=== PATIENT | male | born 1955 | race Caucasian/White ===

== ENCOUNTER 2022-03-04 07:58 | Observation (INO) ==
--- NOTE | 2022-02-10 16:16 | PAT Medication Instructions ---
Medication Instructions Date of Service February 10, 2022 Home Medications Medication Instructions Recorded Mandie Huff #1 ea 02/08/22 cetirizine 10 mg capsule (Allergy Relief (cetirizine)) 10 mg PO Q2D PRN seasonal allergies linaclotide 145 mcg capsule (Linzess) 145 mcg PO QAM rosuvastatin 10 mg tablet (Crestor) 10 mg PO QPM DO NOT take the morning of surgery cetirizine 10 mg capsule (Allergy Relief (cetirizine)) 10 mg PO Q2D PRN seasonal allergies linaclotide 145 mcg capsule (Linzess) 145 mcg PO QAM Take evening before surgery cetirizine 10 mg capsule (Allergy Relief (cetirizine)) 10 mg PO Q2D PRN seasonal allergies (if needed) rosuvastatin 10 mg tablet (Crestor) 10 mg PO QPM Other Notes If you have any questions please call us at [phone] or [phone] or [phone] or [phone]
--- NOTE | 2022-02-18 13:50 | Anesthesiology Consultation ---
Date of Service February 18, 2022 Assessment & Plan (1) Encounter for pre-operative examination: - PAT testing to be faxed to PCP including ordered lipid panel and PSA. - pt reports seeing cardiology with Dr. Cony Verduzco in [facility]. Will request most recent office note, any previous cardiac testing for chart completion if available. Chart Review Chart Review: Pending: Refer to Additional Notes / Consult section and Patient seen in Pre Admission Testing Teaching & Discussion Pre-Anesthesia Teaching/Discussion Notes: Instructed NPO after midnight before surgery, except medications with 15 cc of water. Medication instructions provided according to the PAT guidelines. History Surgery Operation Date: 03/04/22 10:40 Proposed Procedures p Right Total Knee Arthroplasty - Brock Dias MD Height/Weight Height: 5 ft 9 in Weight: 84.8 kg Allergies Allergy/AdvReac Type Severity Reaction Status Date / Time No Known Drug Allergies Allergy Verified 02/10/22 13:55 succinylcholine Allergy Severe Uncoded 02/18/22 14:31 Medications Home Medications Medication Instructions Recorded Confirmed Last Taken cetirizine 10 mg capsule (Allergy 10 mg PO Q2D PRN seasonal allergies 10/05/19 02/10/22 10/10/19 Relief (cetirizine)) linaclotide 145 mcg capsule 145 mcg PO QAM 10/05/19 02/10/22 10/10/19 (Linzess) Wheeled Walker #1 ea 02/08/22 02/08/22 Unknown rosuvastatin 10 mg tablet (Crestor) 10 mg PO QPM 02/10/22 02/10/22 Unknown Tums PRN reflux 02/18/22 Unknown Past Medical History Medical History (Updated 02/18/22 @ 14:20 by Nicole Sharma PA-C) Family history of pseudocholinesterase deficiency sister "body hard time letting go of anesthesia"; believes other sister was tested, unknown results, has been treated as having pseudocholinesterase deficiency in past without personal anesthesia adverse effects to date; denies any hx malignant hyperthermia GERD (gastroesophageal reflux disease) controlled, stable per pt History of COVID-19 December 06, 2021. cold/flu-like symptoms. no current issues Hyperlipidemia BORDERLINE Mild sleep apnea no need for machine Patient denies h/o stroke, seizures, heart attack, heart failure, DM, HTN, blood clots or blood transfusions. Exercise / Class Metabolic Activity II 4-5 Yardwork/Stairs/Walk up hill (denies CP or SOB with 1 FOS) Past Family History Family History (Updated 02/18/22 @ 14:35 by Nicole Sharma PA-C) Sister Family history of diabetes mellitus Family history of reaction to anesthesia Sister Family history of reaction to anesthesia pseudocholinesterase deficiency: pt reports was told family members should not receive "anectine" which is a brand name of succinylcholine. Brother Family history of diabetes mellitus Brother Family history of diabetes mellitus Other FHx: heart disease Past Surgical History Surgical History History of appendectomy AGE 18 History of cholecystectomy 2013 [facility] POSSIBLE PSEUDOCHOLINESTERASE DEFICIENCY DUE TO FAMILY HISTORY. History of colonoscopy Hx of vasectomy S/P right knee arthroscopy Past Anesthesia History Pseudocholinesterase Deficiency History of PONV No Hx of PONV and No Hx of Motion Sickness Social History Smoking Status: Never smoker Do You Dip or Chew Tobacco: No Hx Alcohol Use: Yes Alcohol type: beer alcohol intake frequency: a few times a week Hx Substance Use: No substance use type: does not use Review of Systems Patient denies chest pain, shortness of breath, dyspnea on exertion, fever, chills, cough, wheezing, or palpitations. Physical Exam Vital Signs Vitals BP 128/84 P 63 TEMP 98.2 SP02 97% on RA RESP 18 Physical Full cervical extension range of motion without pain TMD 3.5 finger breadths Mallampati Score 3 Dentition: intact, bridge; denies chipped or loose teeth, caps/crowns or implants Lungs: normal respiratory effort. Clear throughout to auscultation, no adventitious breath sounds Cardiac: regular rate and rhythm, no murmurs noted Carotid arteries: negative bruit bilat Lab Results Anesthesia Preop Results Results Anesthesia Widget: WBC 7.31 K/ul (4.8-10.8) 02/18/22 Hgb 13.9 g/dl (14.0-18.0) L 02/18/22 Hct 41.1 % (40.1-51.0) 02/18/22 Plt 286 K/uL (130-400) 02/18/22 Na 140 mmol/L (136-145) 02/18/22 K 4.3 mmol/L (3.5-5.1) 02/18/22 Cl 105 mmol/L (98-107) 02/18/22 CO2 30 mmol/L (21-32) 02/18/22 BUN 14 mg/dl (6-23) 02/18/22 Creat 0.91 mg/dl (0.6-1.4) 02/18/22 Glucose Level 88 mg/dl (70-99(Fasting)) 02/18/22 PT 10.8 Seconds (9.0-12.0) 02/18/22 PTT 26.8 Seconds (21.0-31.0) 02/18/22 INR 1.0 (0.9-1.1) 02/18/22 Blood Type O Positive 02/18/22 Antibody Screen NEGATIVE 02/18/22 Testing Electrocardiogram Date: 02/18/22 Sinus bradycardia, rate 53 bpm Chest X-Ray Date: 02/18/22 No lines and tubes are seen. The cardiomediastinal silhouette is normal. The lungs are clear. No evidence of pleural effusion or pneumothorax. IMPRESSION: No acute chest disease. COVID-19 Risk Screen Screening Information COVID-19 Screen Date: 02/18/22 Exposure 21 Days Family/Household +COVID Last 21 Days: No Exposure 10 Days Any COVID Exposure Last 10 Days: No Symptoms Last 10 Days Experienced COVID Sx Last 10 Days: No + COVID 0-90 Days COVID + in Last 0-90 Days: No
[~2022-03-04 07:58] MED LIST: ACETAMINOPHEN 500 MG TAB PO SCH; BUPIVACAINE 0.25% 30 ML VIAL ONE; BUPIVACAINE 0.5 % 5 MG/1 ML PF 10ML VIAL ONE; BUPIVACAINE LIPOSOME/PF 266 MG, BUPIVACAINE/EPINEPHRINE 50 ML, SODIUM CHLORIDE 0.9% 30 ... INFIL SCH; CeleBREX 200 MG CAP PO SCH; DEXAMETHASONE SOD INJ 4 MG/ML VIAL ONE; EPINEPHrine INJ 1 MG/ML AMP ONE; FAMOTIDINE 20 MG TAB PO SCH; LR 500ML BOLUS, THEN 15ML/HR IV SCH; LR 60ML/HR IV SCH; METOCLOPRAMIDE HCL 10 MG TABLET PO SCH; Scopolamine 1 MG TDSY TD SCH; TRANEXAMIC ACID 1,000 MG **IV Intra-op IV SCH; ceFAZolin 2000MG 2,000 MG/15 ML SYR IV SCH
--- NOTE | 2022-03-04 08:50 | History & Physical Bridge Note ---
Date of Service March 04, 2022 History & Physical Bridge Note I have examined the patient, reviewed the History & Physical and in the interval since the performance of the History & Physical I have noted the following changes of clinical significance: no changes noted
[2022-03-04] MEDS ORDERED: fentaNYL citrate 100 MCG/2 ML VIAL ONE (09:15)
[2022-03-04] MEDS ORDERED: MIDAZOLAM HCL 1 MG/ML 2ML VIAL ONE (09:15)
[2022-03-04] MEDS ORDERED: PROPOFOL IV EMULSION 10 MG/ML 20 ML VIAL IV ONE (09:59)
[2022-03-04] MEDS ORDERED: BUPIVACAINE/EPINEPHRINE 0.25% 1:200,000 30 ML VIAL ONE (10:49)
[2022-03-04] MEDS ORDERED: SODIUM CHLORIDE 0.9% PF 50 ML VIAL ONE (10:49)
[2022-03-04] MEDS ORDERED: BUPIVACAINE LIPOSOME 1.3% 266 MG/20 ML VIAL ONE (10:49)
[2022-03-04] MEDS ORDERED: KETAMINE 50 MG/5 ML SYRINGE ONE (11:51)
[2022-03-04] MEDS ORDERED: KETOROLAC 30 MG/ML VIAL ONE (12:41)
--- NOTE | 2022-03-04 13:07 | Operative Report ---
PG Post Operative Report Pre & Post Diagnosis Operation Date: 03/04/22 10:40 Pre-Op Diagnosis: Right Knee Degnerative Joint Disease Post-Op Diagnosis: Right Knee Degnerative Joint Disease I identified the patient and participated in the time-out.: Yes Procedure Operation Date: 03/04/22 10:40 Actual Procedures p Right Total Knee Arthroplasty(Right) - Brock Dias MD Surgeon Brock Dias MD Anode Crew Supervisor Mauricio Connolly PA-C Estimated Blood Loss 50 Findings Consistent with Post-Op Diagnosis Operative findings revealed extensive advanced medial compartment arthritis. Complete cartilage loss and eburnation of the medial femoral condyle and anterior medial tibial plateau. The rest of his knee joint looks pretty good. Cartilage is pretty well intact. He had a large knee joint effusion. Osteophytes medially. Fluids 1000 cc Specimens Right knee sent for pathology Drains None Anesthesia Type Spinal MAC Complications none Disposition Accompanied Patient To Recovery: No Indications Patient is 66-year-old very active gentleman who has had a several year history of increasing right knee pain discomfort. He has been through extensive conservative treatment occluding a knee arthroscopy in the past which helped pretty minimally. The symptoms localized compartment of the medial side of his knee with some global symptoms. He was having trouble maintaining an active lifestyle. Recurrent effusions. He elected proceed with surgical management. X-rays show advanced medial compartment arthritis. Description of Procedure Operative implants consist of: 1 Biomet Vanguard size 67.5 right posterior stabilized femoral component. 2. Biomet size 71 tibial tray. 3. 12 mm posterior stabilized polyethylene insert. 4. 31 x 8 all Paller patella. The patient was taken to the operating, identified, placed on the operating table supine position protectors were properly padded. IV antibiotics tried by anesthesia team. A spinal anesthetic and abductor canal block had provided in the holding area. Branch catheter was placed in sterile fashion. Right Tetrick was then placed in the right lower extremity then prepped and draped in usual sterile fashion. Right leg was elevated exsanguinated with use of an Esmarch interspaced at 300 mmHg. An anterior approach of the right knee was then performed to longitudinal incision centered over the patella. Sharp dissection was carried through subcutaneous tissue down to the extensor mechanism. A medial parapatellar arthrotomy incision was made. Some subperiosteal dissection was carried out medially. The fat pad was resected from Neath patella tendon. Lateral patellofemoral ligament was released. Patella subluxated laterally and the knee was flexed. The osteophytes were taken off distal femur. The ACL and PCL were then released from distal femur and tibia subluxated anteriorly. External tib ial alignment jig was then placed in the interface the tibia and adjusted 14 mm medially. Proximal tibial cut was made remove about 2 mm of bone from most deficient aspect medial tibial plateau. Some osteophytes taken off medial and posterior medially. The tibia sized to a size 71. Attention drawn the femur. The distal femur examined the sharp drill. Intramedullary canal was suction. A right 6 degree valgus cutting guide was placed. Distal femoral cutting block was pinned in place. Distal femoral cut was made to take an additional 3 mm bone off distal femur. The femur was then sized to a size 67.5. We did downsize this slightly. The AP cutting block was pinned parallel to the epicondylar axis which was 3 degrees of external rotation. Anterior cut, anterior chamfer cut posterior cut, posterior chamfer cuts were made. The box cutting guide was placed in just slight lateral box cut was made. The knee was flexed. The remnants of the medial and lateral menisci were excised. The osteophytes were taken off the posterior aspect of femur. A trial femoral component was placed for the tibial tray was pinned in maximum external rotation and the drill and stem punch used to create defect in proximal tibia for the tibial tray. The knee was then trialed and the 12 mm insert fit most appropriately. Attention drawn the patella. The patella was cleaned of all soft tissues. Patella thickness measured 18 mm in thickness and was cut down to 12. Sized to a size 31 patella. The lug holes were drilled for the 31 patella. The lateral osteophytes removed. Patella button was placed. Knee was taken through range of motion patella tracked nicely with no thumbs test. Attention drawn to placing permanent components. Nupathe all trial components were removed. Bone plug was placed in the distal femur limit blood loss. A double batch Palacos G cement was mixed. A Biomet Vanguard size 67.5 right posterior stabilized femoral component, a size 71 tibial tray, 12 mm posterior stabilized polyethylene insert, and a 31 x 8 all Paller patella were then cemented in place. Knee was brought out in full extension until cement hardened. Final cement check was then performed. The pericapsular tissues were injected with total of 100 cc of combination of 20 cc of Exparel, 30 cc normal saline, 50 cc of quarter percent Marcaine with epinephrine. Patient did receive 1 g tranexamic acid. The tourniquet was then let down for final tourniquet time 55 minutes. Hemostasis assured use electrocautery. Extensor mechanism closed with combination 1 PDS suture #1 Vicryl suture in a [id number] fashion. Extensor mechanism checked found to be intact the subcutaneous tissue then closed with 2 Dexon suture in a buried interrupted fashion skin was closed skin michelle. Leg was then cleaned and dried and sterile dressed with Xeroform, 4 x 4's, sterile cast padding, and Nash bandage were applied. The patient then transferred to the recovery room in stable condition. Patient tolerated the procedure well and there were no complications. Mauricio Connolly, my physician web marketing assistant, was present for the entire procedure. His assistance was essential and required for appropriate patient positioning, prepping and draping, surgical exposure, performing the technical details of the operation, placement the implants, closure of the wound, and placement of the sterile bandage. I attest to the content of the Intraoperative Record and any orders documented therein. Any exceptions are noted below.
--- NOTE | 2022-03-04 13:28 | XRay Report ---
TWO VIEWS RIGHT KNEE CLINICAL HISTORY: Postoperative examination. FINDINGS: AP and crosstable lateral portable views of the right knee are obtained. A right knee arthr oplasty is in near anatomic alignment. There has been undersurface remodeling of the patella. No acut e fracture is seen. There are expected postoperative changes around the knee including skin clips, so ft tissue edema, and subcutaneous gas. IMPRESSION: Expected postoperative changes status post right knee arthroplasty. No acute fracture is seen. ACT 112: Negative or not required by law. Electronically signed by: Angus Shane M.D. 03/04/2022 1:27 PM
[2022-03-04] MEDS ORDERED: ONDANSETRON INJ 2 MG/ML 2 ML VIAL ONE (13:29)
[2022-03-04] MEDS ORDERED: ONDANSETRON INJ 2 MG/ML 2 ML VIAL IV PRN ×2 (13:34→14:28)
[2022-03-04] MEDS ORDERED: ePHEDrine sulfate 50 MG/ML AMP IV PRN (13:34)
[2022-03-04] MEDS ORDERED: ATROPINE SULFATE 0.1 MG/ML 10ML SYR IV PRN (13:34)
[2022-03-04] MEDS ORDERED: fentaNYL citrate 100 MCG/2 ML VIAL IV PRN (13:34)
--- NOTE | 2022-03-04 13:52 | Anesthesiology Progress Note ---
Date of Service March 04, 2022 Anesthesia Post Procedure Vital Signs Vital Signs: Temp Pulse Pulse Resp BP Pulse Ox O2 Del Method 03/04/22 13:40 55 L 14 122/73 96 Nasal Cannula 03/04/22 13:30 57 L 12 119/75 96 Room Air 03/04/22 13:20 58 L 16 103/69 93 Room Air 03/04/22 13:10 63 15 112/64 93 Room Air 03/04/22 13:01 97.5 F L 66 14 105/52 L 95 Oxymask 03/04/22 08:28 97.5 F L 61 20 126/81 96 Room Air O2 Flow Rate 03/04/22 13:40 2 03/04/22 13:30 03/04/22 13:20 03/04/22 13:10 03/04/22 13:01 5 03/04/22 08:28 Pain Intensity Right Knee: Pain Intensity: 2 Head: Pain Intensity: 1 Transfer of Care Handoff Completed per policy Notes Mental Status: alert / awake / arousable and participated in evaluation Patient Amnestic to Procedure: Yes Nausea / Vomiting: adequately controlled Pain: adequately controlled Airway Patency, RR, SpO2: stable & adequate BP & HR: stable & adequate Hydration State: stable & adequate Neuraxial Anesthesia: was administered and sensory block is resolving Anesthetic Complications: no major complications apparent and Pt Satisfied with anesthetic care
[2022-03-04] MEDS ORDERED: diphenhydrAMINE Capsule 25 MG CAP PO PRN (14:28)
[2022-03-04] MEDS ORDERED: HYDROmorphone INJ 0.5 MG/0.5 ML SYR IV PRN (14:28)
[2022-03-04] MEDS ORDERED: METOCLOPRAMIDE HCL INJ 5 MG/ML 2 ML VIAL IV PRN (14:28)
[2022-03-04] MEDS ORDERED: MAGNESIUM HYDROXIDE SUSP 30 ML UDC PO PRN (14:28)
[2022-03-04] MEDS ORDERED: oxyCODONE HCL IR 5 MG TAB (IMMEDIATE RELEASE) PO PRN (14:28)
[2022-03-04] MEDS ORDERED: NALOXONE HCL 0.4 MG/1 ML VIAL/CARP IV PRN (14:28)
[2022-03-04] MEDS ORDERED: ALUMINUM/MAGNESIUM SUSP 30 ML UDC PO PRN (14:28)
[2022-03-04] MEDS ORDERED: bisacodyL 10 MG SUPP PR PRN (14:28)
[2022-03-04] MEDS: SODIUM CHLORIDE 0.9% 1000ML 1,000 ML IV SCH (14:33)
[2022-03-04] MEDS ORDERED: CALCIUM CARBONATE 500 MG CHEWABLE TAB PO PRN (14:54)
[2022-03-04] MEDS ORDERED: ONDANSETRON 4 MG OD TAB PO PRN (14:55)
[2022-03-04] MEDS ORDERED: CETIRIZINE HCL 10 MG TABLET PO PRN (14:56)
[2022-03-04] MEDS: Scopolamine CHECK PATCH PLACEMENT SCH ×2 (16:34→23:39)
[2022-03-04] MEDS: ACETAMINOPHEN 500 MG TAB PO SCH ×2 (16:56→21:08)
[2022-03-04] MEDS: ceFAZolin 2000MG 2,000 MG/15 ML SYR IV SCH (17:32)
[2022-03-04] MEDS: KETOROLAC 30 MG/ML VIAL IV SCH ×2 (17:33→23:39)
[2022-03-04] MEDS: ASCORBIC ACID 500 MG TAB PO SCH (17:52)
[2022-03-04] MEDS ORDERED: TRANEXAMIC ACID / 0.7% NACL 1,000 MG/100 ML BAG IV SCH (19:00)
[2022-03-04] MEDS ORDERED: ROSUVASTATIN CALCIUM 10 MG TAB PO SCH (21:00)
[2022-03-04] MEDS ORDERED: SENNA 8.6 MG TAB PO SCH (21:00)
[2022-03-04] MEDS ORDERED: DOCUSATE SODIUM/SENNA 50/8.6MG TAB PO SCH (21:00)
[2022-03-04] MEDS: ASPIRIN 81 MG ECTAB PO SCH (21:08)
[2022-03-04] MEDS: TAPENTADOL HCL ER 50 MG TABCR PO SCH (21:08)
[2022-03-04] MEDS: DOCUSATE SODIUM 100 MG CAP PO SCH (21:09)
[2022-03-05] MEDS: SODIUM CHLORIDE 0.9% 1000ML 1,000 ML IV SCH (00:45)
[2022-03-05] MEDS: ceFAZolin 2000MG 2,000 MG/15 ML SYR IV SCH (03:16)
[2022-03-05] MEDS: KETOROLAC 30 MG/ML VIAL IV SCH ×2 (05:54→11:36)
[2022-03-05] MEDS: ACETAMINOPHEN 500 MG TAB PO SCH (05:54)
[2022-03-05 06:35] LABS: Hemoglobin 11.3 g/dl (14.0-18.0); Mean Corpuscular Hemoglobin 29.9 pg (25.0-34.0); Mean Corpuscular Hgb Conc 34.2 g/dL (32.0-36.0); Mean Corpuscular Volume 87.3 fL (80.0-100.0); Platelet Count 237 K/uL (130-400); RDW Coefficient of Variation 13.2 % (11.5-14.5); RDW Standard Deviation 42.2 fL (36.4-46.3); Red Blood Count 3.78 M/uL (4.63-6.08); White Blood Count 13.06 K/ul (4.8-10.8)
[2022-03-05 07:02] LABS: BUN Creatinine Ratio 18.4 (10-20); Calcium 8.3 mg/dl (8.5-10.1); Creatinine Clr Calc Pharmacy 76.2 ml/min; Est GFR (African American) 94.1 ml/min; Est GFR (Non-African American) 81.2 ml/min; Potassium 4.1 mmol/L (3.5-5.1)
--- NOTE | 2022-03-05 07:53 | Progress Notes ---
SUBJECTIVE: A 66-year-old gentleman, postoperative day 1 from a right knee replacement. He is doing well. Had a good night. No chest pain or shortness of breath. Not feeling dizzy or lightheaded. OBJECTIVE: VITAL SIGNS: Temperature is 36.8. Vital signs are stable. GENERAL: Physical examination shows a pleasant middle-aged male. He is sitting up in bed and looks comfortable. EXTREMITIES: Examination of the right leg reveals the dressing to be clean, dry and intact. Calf is soft and supple. He can dorsiflex and plantarflex his foot appropriately. He is neurologically int act. LABORATORY DATA: Hemoglobin 11.3. Hematocrit 33.0. Electrolytes are stable. ASSESSMENT: A 66-year-old gentleman, postoperative day 1 from right knee replacement, doing well. P ain is controlled. He is neurologically intact. PLAN: 1. DVT prophylaxis includes thigh-high TEDs, SCDs, and aspirin twice a day. 2. PT/OT, weightbear as tolerated. Right total knee protocol. 3. Pain control, doing okay with current pain regimen. 4. Disposition: Plan to discharge to home with some home health later today. Job ID: [id number]
[2022-03-05] MEDS ORDERED: dexAMETHasone 10 MG in SYRINGE 0 ML IV SCH (08:00)
[2022-03-05] MEDS: ASPIRIN 81 MG ECTAB PO SCH (08:44)
[2022-03-05] MEDS: DOCUSATE SODIUM 100 MG CAP PO SCH (08:45)
[2022-03-05] MEDS: TAPENTADOL HCL ER 50 MG TABCR PO SCH (08:46)
[2022-03-05] MEDS: ASCORBIC ACID 500 MG TAB PO SCH (08:46)
[2022-03-05] MEDS: Scopolamine CHECK PATCH PLACEMENT SCH (08:46)
[2022-03-05] MEDS ORDERED: LINACLOTIDE 145 MCG CAPSULE PO SCH (09:00)
[2022-03-05] MEDS ORDERED: TAMSULOSIN HCL 0.4 MG CAP PO SCH (09:00)
[2022-03-05] MEDS ORDERED: MULTIVITAMIN TAB PO SCH (09:00)
--- NOTE | 2022-03-08 13:40 | Discharge Summary ---
Date of Service March 08, 2022 Discharge Data Procedures Performed Operation Date: 03/04/22 10:40 Actual Procedures p Right Total Knee Arthroplasty(Right) - Brock Dias MD Hospital Course (1) Status post total right knee replacement: This is a 66 year old patient admitted on 03/04/22 and underwent total knee arthroplasty. He tolerated the procedure well and there were no complications. Transferred to the PACU post op and later to the orthopedic floor for further care. He was given ancef for antibiotic prophylaxis. He was also given AKIL stockings, SCDs, and aspirin for DVT prophylaxis. Hemoglobin, hematocrit, and vital signs were monitored during his hospital stay and remained stable. Did not require any blood transfusions. There were no complications during his hospital stay. By post op day #1 the patient was tolerating a regular diet, pain was reasonably controlled with oral pain medicine, and he was participating in physical therapy. On post op day #1 the patient was discharged home and set up with home health care. He was given printed discharge instructions including prescriptions for extra strength tylenol, aspirin, ketorolac, zofran, senokot, flomax, and oxycodone. Continue physical therapy, weight bearing as tolerated. Continue AKIL stockings. Follow up approximately 2 weeks post op or sooner if there are problems or concerns. Coding Level of Care Code None Diagnoses Status post total right knee replacement Z96.651
== END 2022-03-05 13:37 | disposition home health service (06) ==
LOC: 3E 07:58 → ASU 07:58